=== PATIENT | male | born 1930 | race Caucasian/White ===

== ENCOUNTER → 2017-02-18 | Outpatient (CLI) | payer OTHER ==
[~2017-02-18] MED LIST: LORA-741 PO; MCRK20 PO; MEMA10TA PO; PRLSR20 PO; RGL10 PO; THR25 PO
[2017-02-18 17:49] LABS: URINE APPEARANCE TURBID (CLEAR); URINE BILIRUBIN NEG (NEG); URINE COLOR DK YELLOW; URINE EPITHELIAL CELL AUTO >30 /lpf (0-5); URINE NITRITE NEG (NEG); URINE PH 5.5 (4.5-7.5); UROBILINOGEN NEG (NEG)
[2017-02-18 17:58] LABS: MANUAL MICROSCOPIC REQUIRED? NO; REVIEW REQ? YES
[2017-02-18 18:00] LABS: ZZURINE CULT IF INDIC CATH NO
== END | disposition home or self-care (01) ==
LOC: C.LABSPEC 17:45
PROVIDERS: ATTEND Family Medicine
DX: R30.0 Dysuria (principal)